=== PATIENT | female | born 1970 | race Hispanic/Latino ===

== ENCOUNTER 2018-10-29 15:32 | Emergency (ER) | payer OTHER ==
[~2018-10-29] VITALS: Ht 149.9 cm; Wt 83.9 kg
== END 2018-10-29 17:45 | disposition home or self-care (01) ==
LOC: ED 15:32
DX: S46.911A Strain of unspecified muscle, fascia and tendon at shoulder and upper arm level, right arm, initial encounter (principal); W18.2XXA Fall in (into) shower or empty bathtub, initial encounter
CPT/HCPCS: 73030; 99283-25

== ENCOUNTER 2022-06-03 05:35 | Day surgery (SDC) | payer OTHER ==
[~2022-06-03] VITALS: Ht 152.4 cm; Wt 86.4 kg
[2022-06-03] MEDS ORDERED: FERROUS SULFAT324 MG PO (05:49)
--- NOTE | 2022-06-03 06:46 | NUR ---
0643-BLOOD INFUSION STARTED. PATIENT INSTRUCTED TO INFORM RN IF ANY S/S OF REACTION. PATIENT VERBALIZED UNDERSTANDING. DAUGHTER AND IN ROOM.
--- NOTE | 2022-06-03 07:00 | NUR ---
0658-PATIENT DENIES ANY S/S OF REACTION. RATE CHANGED TO 150ML/H. FAMILY AT BEDSIDE. CALL LIGHT WITHIN REACH.
--- NOTE | 2022-06-03 08:35 | NUR ---
animal anatomist cs increased rate on blood transfusion.
--- NOTE | 2022-06-03 08:41 | NUR ---
PT ALERT, ORIENTED AND DOES NOT SPEAK GUINEAN. HER DAUGHTER INTERPRETED MY ENCOURAGEMENT. KELIN DAVIS INFORMED ME PT AND FAMILY ANXIOUS ABOUT TODAY DUE TO FAMILY HISTORY. WILL FOLLOW NEEDED
--- NOTE | 2022-06-03 09:09 | NUR ---
2ND UNIT PRBCS HUNG PER PUMP 120MLS/HR. PT AGAIN INSTRUCTED TO REPORT S/S OF REACTION. HAS DENIED ANY S/S OF REACTION AT END OF FIRST UNIT.
--- NOTE | 2022-06-03 09:19 | NUR ---
0916-PATIENT TO OR. TOLD OR STAFF BLOOD INFUSION STARTED AT 0906. SEE OR CHARTING OR TIMES.
--- NOTE | 2022-06-03 10:02 | NUR ---
06/03/22 Ana Joseph 0957- PT ARRIVES TO PACU NONAROUSABLE TO NOXIOUS STIMULI WITH AN OPA IN PLACE. RESP EVEN AND UNLABORED. OXYGEN SAT HIGH 90'S TO 100% ON 6L VIA MASK. BLOOD INFUSING ON THE PUMP TO PT'S RIGHT HAND IV. LEFT HAND IV SALINE LOCKED.
--- NOTE | 2022-06-03 11:09 | NUR ---
1045: PATIENT BACK IN DAY SURGERY ROOM FROM PACU. DENIES PAIN. BLOOD TRANSFUSION COMPLETE. VS CHECKED. IV SITES WNL. PERIPAD IN PLACE WITH MINIMAL DRAINAGE. PATIENT GIVEN JELLO, WATER AND APPLE JUICE. DAUGHTER AND AT BEDSIDE. SCDs ON. CALL LIGHT WITHIN REACH.
--- NOTE | 2022-06-03 11:44 | NUR ---
1135-PATIENT LAYING IN BED ASLEEP, AWAKES EASY TO VERBAL STIMULI. RESP EVEN AND UNLABORED. DENEIS PAIN. VIDYA PAD HAS A SMALL AMOUNT OF RED DRAINAE. IN ROOM. CALL LIGHT WITHIN REACH.
--- NOTE | 2022-06-03 13:38 | NUR ---
[id number]- PATIENT UP TO RESTROOM AND VOIDS 450ML. BACK TO ROOM AND SITTING IN BED. DENIES PAIN. STATES SORE WHEN UP WALKING. DENIES NAUSEA. RESP EVEN AND UNLABORED. VIDYA PAD WITH SMALL AMOUNT OF RED DRAINAGE. PATIENT READY TO GO HOME. FAMILY IN ROOM. [id number] INSTRUCTIONS GIVEN TO PATIENT AND DAUGHTER. ALL QUESTIONS ANSWERED. PATIENT AMBULATES TO WHEELCHAIR. RIDE PROVIDED TO FRONT OF HOSPITAL WHERE CAR WAS WAITING. [facility] TO WORK NOTE FOR PATIENT.
--- NOTE | 2022-06-08 10:03 | OR ---
[facility] [address], [place] [address] Signed DATE OF OPERATION: 06/03/2022 SURGEON: Erick Henson DO PREOPERATIVE DIAGNOSES: 1. Postmenopausal bleeding. 2. Endometrial mass. 3. Severe anemia. POSTOPERATIVE DIAGNOSES: 1. Postmenopausal bleeding. 2. Endometrial mass. 3. Severe anemia. PROCEDURES: 1. Hysteroscopy. 2. Dilation and curettage. ANESTHESIA: General. ESTIMATED BLOOD LOSS: 25 mL. FINDING: Grade 3 cystocele. Cervix easily dilated. Uterus with 2 cm anterior lower uterine segment mass surrounded by papillary like tissue extending up towards the right cornua. Bilateral tubal ostia visualized. INDICATIONS FOR THE PROCEDURE: The patient is a 51-year-old female, who presented to our office for evaluation of postmenopausal bleeding and ultrasound significant for intracavitary endometrial mass. Endometrial biopsy was performed. Pathology is preliminary at this time concerning for malignancy. Preoperative hemoglobin less than 7. Risks, benefits, and alternatives to hysteroscopy and D and C for definitive tissue diagnosis and further evaluation of endometrial mass was discussed as well as risks and benefits of transfusion 2 units packed red cell and consents were signed, the patient elected to proceed. PROCEDURE: The patient Electronically Signed By: ERICK HENSON DO 06/08/22 1003 PATIENT NAME: GISEL NICHOLE OPERATIVE REPORT DATE OF : 72 REPORT #: [id number] PHYSICIAN: ERICK HENSON DO PCP: GUY DORADO REPORT IS CONFIDENTIAL AND NOT TO BE RELEASED WITHOUT AUTHORIZATION [facility] [address] [facility] [place] [place] [address] Signed was taken to the operative operating room, where she was placed under general anesthesia and positioned in dorsal lithotomy. She was prepped and draped in normal sterile fashion. Weighted speculum was placed in the vagina. Anterior lip of the cervix was grasped with an Allis clamp. The cervix was easily sequentially dilated with Hegar dilators and a hysteroscope was advanced with findings as noted above. Sterile normal saline was used as a distension media with AquaLux fluid management system. Removal of mass was performed using MyoSure light as well as circumferential curettage as best could be obtained given poor visualization of the cavity following initial excision of mass. Fluid deficit noted to be 580 mL; however, significant amount of fluid spilled onto the floor and was unaccounted for. All instrumentation was removed. Excellent hemostasis was noted. Sponge and instrument counts were correct and the patient was taken to the recovery room in stable and satisfactory condition, where she continued to receive the remainder of her second unit of blood. Followup is pending pathology results. Erick Henson DO EMZ/MODL /[id number] Copies: ~ Electronically Signed By: ERICK HENSON DO 06/08/22 1003 PATIENT NAME: GISEL NICHOLE OPERATIVE REPORT DATE OF : 72 REPORT #: [id number] PHYSICIAN: ERICK HENSON DO PCP: GUY DORADO REPORT IS CONFIDENTIAL AND NOT TO BE RELEASED WITHOUT AUTHORIZATION
--- NOTE | 2022-06-10 08:20 | PATH ---
[facility] [address] [place], [place] [address] Signed THIS IS AN ADDENDUM REPORT SPECIMEN(S): A ENDOMETRIAL CURETTINGS SPECIMEN SOURCE: A. ENDOMETRIAL CURETTINGS CLINICAL HISTORY: Endometrial mass; abnormal uterine bleeding. Hysteroscopy, DC. FINAL PATHOLOGIC DIAGNOSIS: Endometrium, curettage: - Carcinosarcoma, see Comment. COMMENT: Sections demonstrate a biphasic malignant tumor characterized by well-formed glandular structures admixed amongst dedifferentiated malignant cells with high nuclear grade and focal spindled architecture. No heterologous elements are seen. Immunohistochemical stains are performed and demonstrate the following: - AE1/AE3: Positive in glandular component, patchy weak to negative in sarcomatous component. - ER: Strongly positive in glandular component, weak to moderate staining in sarcomatous component. - P16: Strongly positive in glandular component, negative in sarcomatous component. - P53: Positive in sarcomatous component, wild-type staining in glandular component. These findings support the above interpretation. Testing for microsatellite instability by immunohistochemistry has been ordered and will be reported in an addendum. A diagnostic alert is initiated by Dr. Liu on 06/09/2022. As part of [facility] Quality Improvement Program, this case was reviewed by another member of our pathology staff. COREYP:georgie:C1NR MICROSCOPIC EXAMINATION: Histologic sections of all submitted blocks are examined by light microscopy. These findings, together with the gross examination, support the pathologic diagnosis. PATIENT NAME: GISEL NICHOLE PATHOLOGY DATE OF : 72 REPORT #: [id number] PHYSICIAN: LIZ PEREZ PCP: GUY DORADO REPORT IS CONFIDENTIAL AND NOT TO BE RELEASED WITHOUT AUTHORIZATION [facility] [address] [place], [place] [address] Signed GROSS DESCRIPTION: The specimen, labeled "RL, endometrial curettings," is received in formalin and consists of irregular shaped, pink-miner, membranous tissue fragments that aggregate measure 4.2 x 2.5 x 0.5 cm. Specimen is entirely submitted in cassettes (A1-A4). JS (under the direct supervision of a pathologist) The Gross Description was prepared using a voice recognition system. The report was reviewed for accuracy; however, sound-alike word errors, addition and/or deletions may occur. If there is any question about this report, please contact Client Services. ADDITIONAL NOTES: Immunohistochemical and/or in situ hybridization studies were performed on this case with the appropriate positive controls that react as expected. This test was developed and its performance characteristics determined by [facility]. It has not been cleared or approved by the U.S. Food and Drug Administration. The FDA has determined that such clearance or approval is not necessary. This test is used for clinical purposes. It should not be regarded as investigational or for research. [facility] is certified under the Clinical Laboratory Improvement Amendments of 1988 (CLIA) as qualified to perform high complexity clinical laboratory testing. This assay has not been validated for specimens that have been decalcified. PERFORMING LABORATORY: The technical component was performed by [facility], [address] [place] [address] (CLIA# [id number]). Professional interpretation was performed by [facility], [address] [place] [address] (CLIA# [id number]). COMMENT: Tumor cells show no loss of nuclear expression of MMR proteins. This correlates with a low probability of microsatellite instability. However, if there is a high clinical suspicion for Gore syndrome (hereditary non-polyposis colorectal carcinoma syndrome) in this patient, additional testing should be considered. Please contact [facility] if such testing is indicated. ROBERT:georgie ADDITIONAL NOTES: PATIENT NAME: GISEL NICHOLE PATHOLOGY DATE OF : 72 REPORT #: [id number] PHYSICIAN: KATIAgetbetter! CHRIS PCP: GUY DORADO REPORT IS CONFIDENTIAL AND NOT TO BE RELEASED WITHOUT AUTHORIZATION [address] [address] Signed Immunohistochemical and/or in situ hybridization studies were performed on this case with the appropriate positive controls that react as expected. This test was developed and its performance characteristics determined by [facility]. It has not been cleared or approved by the U.S. Food and Drug Administration. The FDA has determined that such clearance or approval is not necessary. This test is used for clinical purposes. It should not be regarded as investigational or for research. [facility] is certified under the Clinical Laboratory Improvement Amendments of 1988 (CLIA) as qualified to perform high complexity clinical laboratory testing. The technical component was performed by [facility], [facility] [place] [address] (CLIA#: [id number]). Professional interpretation was performed by [facility], [address] [place] [address] (CLIA# [id number]). REASON FOR ADDENDUM: To add results of additional testing. ADDENDUM PATHOLOGIC DIAGNOSIS: Endometrium, carcinosarcoma, microsatellite instability testing by IHC: - MLH1: Intact nuclear expression. - MSH2: Intact nuclear expression. - MSH6: Intact nuclear expression. - PMS2: Intact nuclear expression. INTERPRETATION: Normal pattern. ADDENDUM MICROSCOPIC EXAMINATION: A panel of four antibodies is selected which will detect 95% of microsatellite unstable carcinomas. Block: A4. Recut HE slide is prepared from the block. The presence of neoplastic glands and non-neoplastic internal control glands or stroma is confirmed. Internal control cells for MLH1, MSH2, PMS2 and MSH6 are positive. Neoplastic gland cells show the following: - MLH1: Positive. - MSH2: Positive. - MSH6: Positive. - PMS2: Positive. Technical testing [place] [facility] [place] Diagnostician: SEDRICK PAUL PATIENT NAME: GISEL NICHOLE PATHOLOGY DATE OF : 72 REPORT #: [id number] PHYSICIAN: KATIAgetbetter! PATHOLOGY PCP: GUY DORADO REPORT IS CONFIDENTIAL AND NOT TO BE RELEASED WITHOUT AUTHORIZATION [facility] [address] [place] [address] Signed Pathologist Diagnostician: Wojciech Liu MD Pathologist Electronically Signed 06/10/2022 Copies: ~ PATIENT NAME: GISEL NICHOLE PATHOLOGY DATE OF : 72 REPORT #: [id number] PHYSICIAN: LIZ PEREZ PCP: GUY DORADO REPORT IS CONFIDENTIAL AND NOT TO BE RELEASED WITHOUT AUTHORIZATION
== END 2022-06-03 12:35 | disposition home or self-care (01) ==
LOC: DS 05:35
PROVIDERS: ATTEND Obstetrics & Gynecology
PROC: 0UDB8ZX Extraction of Endometrium, Via Natural or Artificial Opening Endoscopic, Diagnostic (ICD-10-PCS; principal; 2022-06-03 07:30)
DX: C54.1 Malignant neoplasm of endometrium (principal); D64.9 Anemia, unspecified; Z20.822 Contact with and (suspected) exposure to COVID-19
CPT/HCPCS: 36415; 84703; 86900; 86901; 86922; 88305; 88341; 88342; J2704; J3010; P9016

== ENCOUNTER 2023-05-19 12:42 | Emergency (ER) | payer OTHER ==
[~2023-05-19] VITALS: Ht 152.4 cm; Wt 91.8 kg
--- OUTSIDE RECORDS SUMMARY | ~2023-05-19 | XMS | Continuity of Care Document ---
Demographics + + + | Address | [address] | | | [place] [address] | + + + | Preferred Language | Unknown | + + + | Marital Status | Legally | + + + | Lutheran Affiliation | Unknown | + + + | Race | Unknown | + + + | Ethnic Group | or | + + + Author + + + | Author | [facility] | + + + | Organization | [facility] | + + + | Address | [address] | | | [place] [address] | + + + | Phone | | + + + Care Team Providers + + + + | Care Brand Protection Manager Name | Role | Phone | + + + + Unavailable | Unavailable | + + + + Unavailable | Unavailable | + + + + Allergies No information. Encounters No information. Functional Status No information. Immunizations No information. Medications + + + + | date | description | facility | + + + + | 2022-06-03 00:00 | FERROUS SULFATE | [facility] | + + + + Problems + + + + | date | description | facility | + + + + | 2018-10-29 00:00 | Shoulder pain | [facility] | + + + + Procedures + + + + | | description | facility | + + + + | 2022-06-03 00:00 | Hysteroscopy with dilation | [facility] | | | and curettage of uterus | | + + + + | 2022-06-03 00:00 | Hysteroscopy with dilation | [facility] | | | and curettage of uterus | | + + + + Results/Labs +--------+--------+ +---------+--------+---------+ | test | date | facility | value | unit | notes | +--------+--------+ +---------+--------+---------+ + + | Result panel 1 | + + + + + + + + + | | 2022-06-01 | [facility] | NEGATIVE | (missing) | (missing) | | (unavailable | 13:55 | [facility] | | | | + + + + + + + + + | Result panel 2 | + + + + + +-------+ + + | | 2022-06-01 | [facility] | 9.1 | (missing) | (missing) | | (unavailable | 14:26 | [facility] | | | | + + + +-------+ + + + + | Result panel 3 | + + + + + + + + + | | 2022-06-01 | [facility] | NEGATIVE | (missing) | (missing) | | (unavailable | 14:26 | [facility] | | | | + + + + + + + + + | Result panel 4 | + + + + + + + + + | | 2022-06-01 | [facility] | NEGATIVE | (missing) | (missing) | | (unavailable | 14:26 | [facility] | | | | + + + + + + + + + | Result panel 5 | + + + + + + + + + | | 2022-06-01 | [facility] | COMPATIBLE | (missing) | (missing) | | (unavailable | 14:26 | [facility] | | | | + + + + + + + + + | Result panel 6 | + + + + + + + + + | | 2022-06-01 | [facility] | COMPATIBLE | (missing) | (missing) | | (unavailable | 14:26 | [facility] | | | | + + + + + + + + + | Result panel 7 | + + + + + + + + + | | 2022-06-01 | [facility] | BLOOD IN | (missing) | (missing) | | (unavailable | 14:26 | [facility] | [facility] | | | | + + + + + + + + + | Result panel 8 | + + + + + +--------+ + + | | 2022-06-01 | [facility] | 3.37 | (missing) | (missing) | | (unavailable | 14:26 | [facility] | | | | + + + +--------+ + + + + | Result panel 9 | + + + + + +-------+ + + | | 2022-06-01 | [facility] | 6.8 | (missing) | (missing) | | (unavailable | 14:26 | [facility] | | | | + + + +-------+ + + + + | Result panel 10 | + + + + + +--------+ + + | | 2022-06-01 | [facility] | 23.2 | (missing) | (missing) | | (unavailable | 14:26 | [facility] | | | | + + + +--------+ + + + + | Result panel 11 | + + + + + +--------+ + + | | 2022-06-01 | [facility] | 68.9 | (missing) | (missing) | | (unavailable | 14:26 | [facility] | | | | + + + +--------+ + + + + | Result panel 12 | + + + + + +--------+ + + | | 2022-06-01 | [facility] | 20.3 | (missing) | (missing) | | (unavailable | 14:26 | [facility] | | | | + + + +--------+ + + + + | Result panel 13 | + + + + + +--------+ + + | | 2022-06-01 | [facility] | 29.4 | (missing) | (missing) | | (unavailable | 14:26 | [facility] | | | | + + + +--------+ + + + + | Result panel 14 | + + + + + +--------+ + + | | 2022-06-01 | [facility] | 19.4 | (missing) | (missing) | | (unavailable | 14:26 | [facility] | | | | + + + +--------+ + + + + | Result panel 15 | + + + + + +-------+ + + | | 2022-06-01 | [facility] | 503 | (missing) | (missing) | | (unavailable | 14:26 | [facility] | | | | + + + +-------+ + + + + | Result panel 16 | + + + + + +-----+ + + | | 2022-06-03 | [facility] | B | (missing) | (missing) | | (unavailable | 06:03 | [facility] | | | | + + + +-----+ + + + + | Result panel 17 | + + + + + + + + + | | 2022-06-03 | [facility] | POSITIVE | (missing) | (missing) | | (unavailable | 06:03 | [facility] | | | | + + + + + + + Social History No information. Vital Signs + + + +---------+ | date | measurement | value | units | + + + +---------+ | 2022-06-01 00:00 | BMI | 37.2 | kg/m2 | + + + +---------+ | 2022-06-01 00:00 | height_metric | 152.4 | cm | + + + +---------+ | 2022-06-01 00:00 | height_standard | 60 | in | + + + +---------+ | 2022-06-01 00:00 | weight_metric | 86.36 | kg | + + + +---------+ | 2022-06-01 00:00 | weight_standard | 190.39 | lb | + + + +---------+ | 2022-06-03 00:00 | BP_diastolic | 58 | mmHg | + + + +---------+ | 2022-06-03 00:00 | BP_systolic | 116 | mmHg | + + + +---------+ | 2022-06-03 00:00 | heart_rate | 63 | /min | + + + +---------+ | 2022-06-03 00:00 | o2_saturation | 100 | % | + + + +---------+ | 2022-06-03 00:00 | respiration_rate | 16 | /min | + + + +---------+ | 2022-06-03 00:00 | temperature_metric | 36.44 | C | | | | | | + + + +---------+ | 2022-06-03 00:00 | | 97.6 | F | | | temperature_standar | | | | | d | | | + + + +---------+"
--- OUTSIDE RECORDS SUMMARY | ~2023-05-19 | XMS | Continuity of Care Document ---
Demographics + + + | Address | [address] | | | [place] [address] | + + + | Preferred Language | Unknown | + + + | Marital Status | Legally | + + + | Hinduism Affiliation | Unknown | + + + | Race | Unknown | + + + | Ethnic Group | or | + + + Author + + + | Author | [facility] | + + + | Organization | [facility] | + + + | Address | [address] | | | [place] [address] | + + + | Phone | | + + + Care Team Providers + + + + | Care Communications Administrator Name | Role | Phone | + + + + Unavailable | Unavailable | + + + + Unavailable | Unavailable | + + + + Allergies No information. Encounters No information. Functional Status No information. Immunizations No information. Medications + + + + | date | description | facility | + + + + | 2022-06-03 00:00 | FERROUS SULFATE | [facility] | + + + + Problems + + + + | date | description | facility | + + + + | 2018-10-29 00:00 | Shoulder pain | [facility] | + + + + Procedures + + + + | | description | facility | + + + + | 2022-06-03 00:00 | Hysteroscopy with dilation | [facility] | | | and curettage of uterus | | + + + + | 2022-06-03 00:00 | Hysteroscopy with dilation | [facility] | | | and curettage of uterus [...]
[~2023-05-19 12:42] MED LIST: FERROUS SULFAT324 MG PO
[2023-05-19 13:02] LABS: BASOPHILS 1.2 % (0-2); EOSINOPHILS 1.2 % (0-6); HEMATOCRIT 37.8 % (35.0-50.0); HEMOGLOBIN 12.7 g/dL (12.0-18.0); LYMPHOCYTES 16.4 % (24-44); MCH 30.2 (27-36); MCHC 33.7 g/dl (30-36); MCV 89.6 fl (81-99); MONOCYTES 4.7 % (0-12); NEUTROPHILS 76.5 % (39-80); PLATELET COUNT 328 K/uL (140-440); RBC 4.21 M/ul (4.3-5.7); RDW 14.7 (10.5-15.0)
[2023-05-19 13:14] LABS: PARTIAL THROMBOPLASTIN TIME 29.3 Sec (22.9-41.3)
[2023-05-19 13:15] LABS: INR 0.96 (0.80-1.30); PROTIME 12.3 Sec (11.2-14.2)
[2023-05-19 13:19] LABS: ALBUMIN 3.6 g/dL (3.4-5.0); ALBUMIN/GLOBULIN RATIO 0.75 (1.1-2.4); ANION GAP 12.6 (7-21); BILIRUBIN, TOTAL 0.4 ng/dL (0.2-1.0); BUN/CREATININE RATIO 24.13 (6.0-28.6); CALCIUM 9.3 mg/dL (8.5-10.1); CREATININE, SERUM 0.58 mg/dL (0.55-1.02); POTASSIUM 3.6 mmol/L (3.5-5.1); PROTEIN, TOTAL 8.4 g/dL (6.4-8.2)
[2023-05-19] MEDS ORDERED: FISH OIL 1,0001 EAC6 PO (13:20)
[2023-05-19] MEDS ORDERED: VITAMIN D350 MCG PO (13:21)
[2023-05-19 14:14] LABS: INFLUENZA B NAA NEGATIVE (NEGATIVE); RESPIRATORY SYNCYTIAL VIR NAA NEGATIVE (NEGATIVE)
[2023-05-19] MEDS ORDERED: PREDNISONE20 MG PO (15:42)
[2023-05-19] MEDS ORDERED: CLEAR EYES NATU15 ML OP (15:42)
[2023-05-19] MEDS ORDERED: ASPIRIN325 MG PO (15:42)
[2023-05-19 16:21] VITALS: BP 149/75
--- NOTE | 2023-05-19 20:30 | EKG ---
[facility] [address] [facility] [place] [address] Signed Normal sinus rhythm Nonspecific T wave abnormality Abnormal ECG No previous ECGs available Confirmed by Huber Hadley MD () on 05/19/2023 8:29:51 PM Electronically Signed By: HUBER HADLEY MD 05/19/23 2030 PATIENT NAME: REGI LEEGISEL Electrocardiogram DATE OF : 72 PHYSICIAN: HUBER HADLEY MD REPORT #: [id number] REPORT IS CONFIDENTIAL AND NOT TO BE RELEASED WITHOUT AUTHORIZATION
== END 2023-05-19 16:03 | disposition home or self-care (01) ==
LOC: ED 12:42
PROVIDERS: Student in an Organized Health Care Education/Training Program
DX: G51.0 Bell's palsy (principal); Z86.73 Personal history of transient ischemic attack (TIA), and cerebral infarction without residual deficits; Z20.822 Contact with and (suspected) exposure to COVID-19
CPT/HCPCS: 36415; 70450; 70496; 70498; 70551; 71045; 80053; 84703; 85025; 85610; 85730; 87502; 93005; 93010; 99284-25; Q3014; Q9967; U0002